=== PATIENT | male | born 1990 ===

== ENCOUNTER 2021-01-15 03:00 | Emergency (ER) | payer SELFPAY ==
[2021-01-15 03:38] LABS: Bilirubin,Urine NEG (Negative); Blood,Urine NEG (Negative); Color,Urine Yellow (Yellow); Mucus,Urine FEW /HPF; Protein,Urine <15 mg/dL mg/dL (Negative); Urobilinogen,Urine < 2.0 mg/dL (<2.0)
--- NOTE | 2021-01-15 07:15 | Emergency Department Report ---
ED Male HPI - General Chief complaint: Urogenital-Male Stated complaint: BLEEDING FROM PENIS Time Seen by Provider: 01/15/21 07:14 Source: patient Mode of arrival: Ambulatory Limitations: No Limitations - Related Data Allergies Allergy/AdvReac Type Severity Reaction Status Date / Time No Known Allergies Allergy Unverified 01/15/21 03:02 ED Review of Systems ROS: Stated complaint: BLEEDING FROM PENIS Other details as noted in HPI ED Past Medical Hx - Past Medical History Previous Medical History?: No - Surgical History Past Surgical History?: No - Social History Smoking Status: Never Smoker Substance Use Type: None ED Physical Exam - General Limitations: No Limitations ED Course Vital Signs 01/15/21 03:03 Temperature 98.2 F Pulse Rate 79 Respiratory 18 Rate Blood Pressure 136/71 O2 Sat by Pulse 100 Oximetry Critical care attestation.: If time is entered above; I have spent that time in minutes in the direct care of this critically ill patient, excluding procedure time. ED Disposition Disposition: PAT REG,TRIAGED-NO MSE Condition: Stable
[2021-01-15] MEDS ORDERED: LIDOCAINE-MPF (1%) 10 MG/1 ML VIAL 5 ML INFILTRATI ONE (07:40)
--- NOTE | 2021-01-15 07:43 | Emergency Department Report ---
ED Male HPI - General Chief complaint: Urogenital-Male Stated complaint: BLEEDING FROM PENIS Time Seen by Provider: 01/15/21 07:14 Source: patient Mode of arrival: Ambulatory Limitations: No Limitations - History of Present Illness Initial comments: 30-year-old -[place] male presents to the emergency room concern he has an STD. Patient admits to penile blood on his tip of penis. Admits to penile tingling. Patient states that he has had this before from the same partner. He denies any fever chills no abdominal pain no nausea no vomiting. Has a history of STD. MD Complaint: penile discharge Onset/Timin -: days(s) Location: penis Severity scale (0 -10): 0 - Related Data Sexually active: Yes (Unprotected) Previous Rx's Medication Instructions Recorded Last Taken Type Doxycycline Hyclate [Doxycycline 100 mg PO Q12HR 10 Days #20 tab 01/15/21 Unknown Rx Hyclate TAB] Allergies Allergy/AdvReac Type Severity Reaction Status Date / Time No Known Allergies Allergy Unverified 01/15/21 03:02 ED Review of Systems ROS: Stated complaint: BLEEDING FROM PENIS Other details as noted in HPI Comment: All other systems reviewed and negative ED Past Medical Hx - Past Medical History Previous Medical History?: No - Surgical History Past Surgical History?: No - Social History Smoking Status: Never Smoker Substance Use Type: None - Medications Home Medications: Home Medications Medication Instructions Recorded Confirmed Last Taken Type Doxycycline Hyclate [Doxycycline 100 mg PO Q12HR 10 Days #20 tab 01/15/21 Unknown Rx Hyclate TAB] ED Physical Exam - General Limitations: No Limitations General appearance: alert, in no apparent distress - Head Head exam: Present: atraumatic, normocephalic - Eye Eye exam: Present: normal appearance - Respiratory Respiratory exam: Absent: accessory muscle use - Cardiovascular Cardiovascular Exam: Present: regular rate - exam: Present: urethral discharge External exam: Present: normal external exam - Extremities Exam Extremities exam: Present: full ROM - Back Exam Back exam: Present: full ROM - Neurological Exam Neurological exam: Present: alert, oriented X3, normal gait - Psychiatric Psychiatric exam: Present: normal affect, normal mood - Skin Skin exam: Present: warm, dry, intact, normal color. Absent: rash ED Course Vital Signs 01/15/21 03:03 Temperature 98.2 F Pulse Rate 79 Respiratory 18 Rate Blood Pressure 136/71 O2 Sat by Pulse 100 Oximetry ED Medical Decision Making - Radiology Data 30-year-old -[place] male presents to the emergency room concern he has an STD. Patient admits to penile blood on his tip of penis. Admits to penile tingling. Patient states that he has had this before from the same partner. He denies any fever chills no abdominal pain no nausea no vomiting. Has a history of STD. Patient be treated for gonorrhea and chlamydia. Patient is instructed to follow-up at the health department for full STD evaluation. Critical care attestation.: If time is entered above; I have spent that time in minutes in the direct care of this critically ill patient, excluding procedure time. ED Disposition Clinical Impression: Concern about STD in male without diagnosis Disposition: DC- TO HOME OR SELFCARE Is pt being admited?: No Does the pt Need Aspirin: No Condition: Stable Instructions: Gonorrhea, Preventing Sexually Transmitted Infections, Adult Additional Instructions: Please complete your antibiotics as prescribed. Please do not have intercourse for the next 10 days. It is important to have a full STD evaluation with a test for HIV herpes hepatitis syphilis. You can obtain your gonorrhea and chlamydia test results by bringing your photo ID to medical records. Please inform your partner that you have been treated. Prescriptions: Doxycycline Hyclate [Doxycycline Hyclate TAB] 100 mg PO Q12HR 10 Days #20 tab Referrals: [facility] [Outside] - 3-5 Days [facility] [Outside] - 3-5 Days
[2021-01-15] MEDS ORDERED: WATER FOR INJ Sterile (PF) 10 ML ONE (07:48)
[2021-01-15 08:02] VITALS: BP 146/86
== END 2021-01-15 08:04 | disposition home or self-care (01) ==
LOC: ED 03:00
DX: N48.89 Other specified disorders of penis (principal); Z71.1 Person with feared health complaint in whom no diagnosis is made; Z79.899 Other long term (current) drug therapy
CPT/HCPCS: 81001; 87086; 87591; 96372; 99283; J0696